=== PATIENT | female | born 1935 | race Hispanic/Latino ===

== ENCOUNTER 2024-07-03 18:33 | Emergency (ER) | payer SELFPAY ==
[~2024-07-03] VITALS: Ht 147.3 cm; Wt 40.8 kg
== END 2024-07-03 20:25 | disposition home or self-care (01) ==
LOC: ER 18:39
DX: R53.1 Weakness (principal); R62.7 Adult failure to thrive; R53.81 Other malaise
CPT/HCPCS: 99284